=== PATIENT | male | born 1970 | race American Indian/Alaskan Native ===

== ENCOUNTER 2020-10-25 02:14 | Emergency (ER) | payer SELFPAY ==
[2020-10-25 03:44] VITALS: BP 124/83
[2020-10-25] MEDS ORDERED: ASPIRIN 325 MG TAB PO ONE (03:45)
--- NOTE | 2020-10-25 04:21 | XRay Report ---
CHEST 2 VIEWS INDICATION / CLINICAL INFORMATION: Chest pain. COMPARISON: None available. FINDINGS: SUPPORT DEVICES: None. HEART / MEDIASTINUM: No significant abnormality. LUNGS / PLEURA: No significant pulmonary abnormality. No significant pleural effusion. No pneumothora x. ADDITIONAL FINDINGS: No significant additional findings. IMPRESSION: 1. No acute abnormality of the chest. Signer Name: Ernesto Levy MD Signed: 10/25/2020 4:16 AM Workstation Name: [id number]
[2020-10-25 04:37] LABS: Basophils % (Auto) 0.6 % (0.0-1.8); Eosinophils # (Auto) 0.1 K/mm3 (0.0-0.4); Eosinophils % (Auto) 2.1 % (0.0-4.3); Hematocrit 45.3 % (35.5-45.6); Hemoglobin 15.4 gm/dl (11.8-15.2); Lymphocytes # (Auto) 2.4 K/mm3 (1.2-5.4); Lymphocytes % (Auto) 37.5 % (13.4-35.0); Mean Corpuscular HGB Conc 34 % (32-34); Mean Corpuscular Volume 91 fl (84-94); Monocytes # (Auto) 0.5 K/mm3 (0.0-0.8); Monocytes % (Auto) 8.3 % (0.0-7.3); Platelet Count 230 K/mm3 (140-440); Red Cell Distribution Width 13.7 % (13.2-15.2)
[2020-10-25 04:58] LABS: Alanine Aminotransferase 18 units/L (7-56); Albumin 4.3 g/dL (3.9-5); BUN/Creatinine Ratio 17; Blood Urea Nitrogen 15 mg/dL (9-20); Calcium 9.4 mg/dL (8.4-10.2); Hemolysis Index 3
[2020-10-25] MEDS ORDERED: FAMOTIDINE 20 MG TAB PO ONE (05:34)
[2020-10-25] MEDS ORDERED: diphenhydrAMINE 25 MG CAP PO ONE (05:34)
[2020-10-25] MEDS ORDERED: methylPREDNISolone Sod Succinate 125 MG/2 ML INJ IM ONE (05:34)
--- NOTE | 2020-10-25 05:53 | Emergency Department Report ---
ED General Adult HPI - General Chief complaint: Chest Pain Stated complaint: CHEST PAIN/HIVES Source: patient Mode of arrival: Ambulatory Limitations: No Limitations - History of Present Illness Initial comments: Patient is a 49-year-old -[place] male with no past medical history presents to the ED with complaint of acute onset persistent diffuse itchy erythematous maculopapular rashes intermittently with chest tightness for the last 1 week after taking wpcz-oae-[id number] medications for nasal and sinus congestion. Patient states that the symptoms have been persistent and especially worse in the morning and at night when he is about to go to sleep. Patient states that in the last 6 hours, the itching and the rashes have been persistent and he decided come to the ED for evaluation. Patient denies dizziness, syncope, shortness of breath, swollen lips or tongue, swollen throat, dysphagia, dysphonia, nasal and sinus congestion, nausea and vomiting or diarrhea and abdominal pain, fever and chills. MD Complaint: Itchy erythematous maculopapular rashes; chest tightness -: Sudden, week(s) (1) Location: chest (And diffusely) Radiation: non-radiation Severity scale (0 -10): 4 Quality: other (Itchy skin) Consistency: intermittent Improves with: none Worsens with: none Associated Symptoms: denies other symptoms, chest pain (Chest tightness), rash (Diffuse erythematous maculopapular itchy urticarial rashes). denies: confusion, cough, diaphoresis, fever/chills, headaches, loss of appetite, malaise, nausea/vomiting, seizure, shortness of breath, syncope Treatments Prior to Arrival: none - Related Data Previous Rx's Medication Instructions Recorded Last Taken Type Famotidine [Pepcid] 20 mg PO BID #30 tablet 10/25/20 Unknown Rx Prednisone [predniSONE 10 mg 10 mg PO .TAPER #21 tab.ds.pk 10/25/20 Unknown Rx (6-Day Pack, 21 Tabs)] diphenhydrAMINE [Benadryl CAP] 50 mg PO Q8HR PRN #30 capsule 10/25/20 Unknown Rx Allergies Allergy/AdvReac Type Severity Reaction Status Date / Time No Known Allergies Allergy Unverified 10/25/20 03:45 ED Review of Systems ROS: Stated complaint: CHEST PAIN/HIVES Other details as noted in HPI Constitutional: denies: chills, fever Eyes: denies: eye pain, eye discharge, vision change ENT: denies: ear pain, throat pain Respiratory: denies: cough, shortness of breath, wheezing Cardiovascular: chest pain (Chest tightness). denies: palpitations Endocrine: no symptoms reported Gastrointestinal: denies: abdominal pain, nausea, vomiting, diarrhea Genitourinary: denies: urgency, dysuria Musculoskeletal: denies: back pain, joint swelling, arthralgia Skin: rash (Diffuse erythematous itchy maculopapular urticarial rashes). denies: lesions Neurological: denies: headache, weakness, paresthesias Psychiatric: denies: anxiety, depression Hematological/Lymphatic: denies: easy bleeding, easy bruising ED Past Medical Hx - Past Medical History Previous Medical History?: No - Surgical History Past Surgical History?: No - Social History Smoking Status: Never Smoker Substance Use Type: None - Medications Home Medications: Home Medications Medication Instructions Recorded Confirmed Last Taken Type Famotidine [Pepcid] 20 mg PO BID #30 tablet 10/25/20 Unknown Rx Prednisone [predniSONE 10 mg 10 mg PO .TAPER #21 tab.ds.pk 10/25/20 Unknown Rx (6-Day Pack, 21 Tabs)] diphenhydrAMINE [Benadryl CAP] 50 mg PO Q8HR PRN #30 capsule 10/25/20 Unknown Rx ED Physical Exam - General Limitations: No Limitations General appearance: alert, in no apparent distress - Head Head exam: Present: atraumatic, normocephalic, normal inspection - Eye Eye exam: Present: normal appearance, PERRL, EOMI Pupils: Present: normal accommodation - ENT ENT exam: Present: normal exam, normal orophraynx, mucous membranes moist, TM's normal bilaterally, normal external ear exam - Neck Neck exam: Present: normal inspection, full ROM - Respiratory Respiratory exam: Present: normal lung sounds bilaterally. Absent: respiratory distress, wheezes, rales, rhonchi, chest wall tenderness, accessory muscle use - Cardiovascular Cardiovascular Exam: Present: regular rate, normal rhythm, normal heart sounds. Absent: systolic murmur, diastolic murmur, rubs, gallop - GI/Abdominal GI/Abdominal exam: Present: soft, normal bowel sounds. Absent: tenderness, guarding, rebound, hyperactive bowel sounds, hypoactive bowel sounds, organomegaly - Extremities Exam Extremities exam: Present: normal inspection, full ROM, normal capillary refill - Back Exam Back exam: Present: normal inspection, full ROM. Absent: tenderness, CVA tenderness (R), CVA tenderness (L), muscle spasm, paraspinal tenderness, vertebral tenderness - Neurological Exam Neurological exam: Present: alert, oriented X3, CN II-XII intact, normal gait, reflexes normal - Psychiatric Psychiatric exam: Present: normal affect, normal mood - Skin Skin exam: Present: warm, dry, intact, normal color, rash (Diffuse erythematous maculopapular urticarial rashes), erythema, urticaria ED Course Vital Signs 10/25/20 03:35 Temperature 98.4 F Pulse Rate 66 Respiratory 18 Rate Blood Pressure 124/83 O2 Sat by Pulse 99 Oximetry ED Medical Decision Making - Lab Data Result diagrams: 10/25/20 03:47 10/25/20 03:47 - Medical Decision Making This is a 49-year-old -[place] male with no past medical history presents to the ED with complaint of acute onset persistent diffuse itchy erythematous maculopapular rashes intermittently with chest tightness for the last 1 week after taking mvbi-xab-qcqkijc medications for nasal and sinus congestion. Patient states that the symptoms have been persistent and especially worse in the morning and at night when he is about to go to sleep. Patient states that in the last 6 hours, the itching and the rashes have been persistent and he decided come to the ED for evaluation. In the ED, patient is alert and oriented x3 and is not in any distress. Patient was treated for acute allergic reaction in the ED. Lab test results were reviewed and are all nonactionable. On reevaluation, patient's rash is resolved as well as itching with medications. Patient symptoms are likely due to acute allergic reaction to the gzzd-wlf-ldsynmu cough decongestant previously taken. Patient was discharged home on prescription of prednisone Dosepak, Benadryl and Pepcid and was advised to follow-up with his primary care physician in 5 to 7 days for reevaluation or return to the ED immediately if symptoms get worse. - Differential Diagnosis Allergic reaction; urticaria; anxiety; viral syndrome; anaphylaxis Critical care attestation.: If time is entered above; I have spent that time in minutes in the direct care of this critically ill patient, excluding procedure time. ED Disposition Clinical Impression: Itching with irritation, Acute urticaria Acute allergic reaction Qualifiers: Encounter type: initial encounter Qualified Code(s): T78.40XA - Allergy, unspecified, initial encounter Disposition: TO HOME OR SELFCARE Is pt being admited?: No Does the pt Need Aspirin: No Condition: Stable Instructions: Allergies, Adult, Phpc-dk-Fxbc, Hives, Nkxi-kh-Ufkk, Rash, Adult, Xorh-hi-Lzyd Additional Instructions: Take medication with food, drink plenty of fluids and follow-up with your primary care physician in 5 to 7 days for reevaluation. Return to the ED immediately if symptoms get worse. Prescriptions: diphenhydrAMINE [Benadryl CAP] 50 mg PO Q8HR PRN #30 capsule PRN Reason: Itching Famotidine [Pepcid] 20 mg PO BID #30 tablet Prednisone [predniSONE 10 mg (6-Day Pack, 21 Tabs)] 10 mg PO .TAPER #21 tab.ds.pk Referrals: [facility] [Provider Group] - 3-5 Days Forms: Work/School Release Form(ED) Time of Disposition: 05:50 Print Language: SALVADOREAN
--- NOTE | 2020-10-26 14:27 | Electrocardiograph Report ---
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
== END 2020-10-25 06:05 | disposition home or self-care (01) ==
LOC: ED 02:14
DX: T78.40XA Allergy, unspecified, initial encounter (principal); L50.9 Urticaria, unspecified; Z79.899 Other long term (current) drug therapy; X58.XXXA Exposure to other specified factors, initial encounter
CPT/HCPCS: 36415; 71046; 80053; 84484; 85025; 93005; 96372; 99284; J2930

== ENCOUNTER 2021-03-23 12:53 | Emergency (ER) | payer SELFPAY ==
--- NOTE | 2021-03-23 13:40 | Emergency Department Report ---
ED General Adult HPI - General Stated complaint: SWOLLEN LIPS Time Seen by Provider: 03/23/21 13:27 Source: patient - History of Present Illness Initial comments: Patient is 50 years old male with no significant past medical history. Patient presented to the ER complaining of swelling to the upper lip. Patient stated that he had this happen before. Patient stated that he used Suzie for his andrea and mustache. Patient denied any difficulty swallowing or difficulty breathing. Patient stated that he used Benadryl with no improvement. - Related Data Previous Rx's Medication Instructions Recorded Last Taken Type Famotidine [Pepcid] 20 mg PO BID #30 tablet 10/25/20 Unknown Rx Prednisone [predniSONE 10 mg 10 mg PO .TAPER #21 tab.ds.pk 10/25/20 Unknown Rx (6-Day Pack, 21 Tabs)] diphenhydrAMINE [Benadryl CAP] 50 mg PO Q8HR PRN #30 capsule 10/25/20 Unknown Rx Prednisone [predniSONE 10 mg 10 mg PO .TAPER #1 tab.ds.pk 03/23/21 Unknown Rx (6-Day Pack, 21 Tabs)] Allergies Allergy/AdvReac Type Severity Reaction Status Date / Time No Known Allergies Allergy Verified 03/23/21 13:48 ED Review of Systems ROS: Stated complaint: SWOLLEN LIPS Other details as noted in HPI Comment: All other systems reviewed and negative Constitutional: denies: chills, fever Respiratory: denies: cough, shortness of breath, SOB with exertion Cardiovascular: denies: chest pain, palpitations Gastrointestinal: denies: abdominal pain, nausea ED Past Medical Hx - Social History Smoking Status: Never Smoker Substance Use Type: None - Medications Home Medications: Home Medications Medication Instructions Recorded Confirmed Last Taken Type Famotidine [Pepcid] 20 mg PO BID #30 tablet 10/25/20 Unknown Rx Prednisone [predniSONE 10 mg 10 mg PO .TAPER #21 tab.ds.pk 10/25/20 Unknown Rx (6-Day Pack, 21 Tabs)] diphenhydrAMINE [Benadryl CAP] 50 mg PO Q8HR PRN #30 capsule 10/25/20 Unknown Rx Prednisone [predniSONE 10 mg 10 mg PO .TAPER #1 tab.ds.pk 03/23/21 Unknown Rx (6-Day Pack, 21 Tabs)] ED Physical Exam - General General appearance: alert, in no apparent distress - Head Head exam: Present: atraumatic, normocephalic - ENT ENT exam: Present: other (Upper lip swelling. No rash.) - Neck Neck exam: Present: normal inspection, full ROM. Absent: tenderness, meningismus - Respiratory Respiratory exam: Present: normal lung sounds bilaterally - Cardiovascular Cardiovascular Exam: Present: regular rate, normal rhythm, normal heart sounds - GI/Abdominal GI/Abdominal exam: Present: soft. Absent: distended - Extremities Exam Extremities exam: Present: normal inspection, full ROM, normal capillary refill. Absent: calf tenderness - Neurological Exam Neurological exam: Present: alert, oriented X3, CN II-XII intact - Skin Skin exam: Present: warm, intact, normal color ED Course Vital Signs 03/23/21 13:47 Temperature 98.6 F Pulse Rate 63 Respiratory 18 Rate Blood Pressure 125/67 [Left] O2 Sat by Pulse 98 Oximetry ED Medical Decision Making - Medical Decision Making Patient is 50 years old male with no significant past medical history. Patient presented to the ER complaining of swelling to the upper lip. Patient stated that he had this happen before. Patient stated that he used Suzie for his andrea and mustache. Patient denied any difficulty swallowing or difficulty breathing. Patient stated that he used Benadryl with no improvement. Patient symptoms most likely allergic reaction. Patient given prescription for prednisone and advised to follow-up with his primary doctor in the next 2 to 3 days and to return to the ER if he develop any new symptoms. Patient informed the nurse that he had suicidal ideation few days ago. When I discussed this with the patient he stated that he does not have any active suicidal thoughts now but he wants to be evaluated by psychiatric if possible. Patient denies any homicidal ideation. No visual or auditory hallucination. Patient has been evaluated by our psychiatric team and advised patient can be discharged and follow-up as an outpatient. Please see mental health note. Critical care attestation.: If time is entered above; I have spent that time in minutes in the direct care of this critically ill patient, excluding procedure time. ED Disposition Clinical Impression: Allergic reaction, Suicidal ideation Disposition: 01 HOME / SELF CARE / HOMELESS Is pt being admited?: No Condition: Stable Instructions: Allergies, Adult, Ooyp-fi-Fxrm, Suicidal Feelings: How to Help Yourself Prescriptions: Prednisone [predniSONE 10 mg (6-Day Pack, 21 Tabs)] 10 mg PO .TAPER #1 tab.ds.pk Referrals: PRIMARY CARE, [Primary Care Provider] - 3-5 Days
[2021-03-23 13:48] VITALS: BP 125/67
== END 2021-03-23 17:40 | disposition home or self-care (01) ==
LOC: ED 12:53
DX: R45.851 Suicidal ideations (principal); T78.40XA Allergy, unspecified, initial encounter; Y92.89 Other specified places as the place of occurrence of the external cause
CPT/HCPCS: 99282